=== PATIENT | female | born 1975 | race Caucasian/White ===

== ENCOUNTER 2018-07-31 08:09 | Outpatient (CLI) | payer BC ==
--- NOTE | 2018-07-31 09:08 | ULT ---
STANDARD THYROID ULTRASOUND: HISTORY: Thyroid nodule. COMPARISON: None. FINDINGS: Real-time, lemons-scale, and color evaluation of the thyroid was performed. The isthmus measures 4 mm in AP dimension. The right lobe measures 1.7 x 4.3 x 1.4 cm, and the left lobe measures 1.5 x 4.3 x 1.4 cm. In the right lobe of the thyroid, at the superior pole, there is a 1.2 x 0.6 x 0.9 cm, solid, hypoech oic nodule, with well defined margins, without microcalcifications. This is a TI-RADS 4-Moderately s uspicious. IMPRESSION: Single nodule, right lobe of thyroid, TI-RADS 4-Moderately suspicious. Followup in six months to one year is recommended, per TI-RADS criteria. POS: [facility]
== END 2018-07-31 08:10 | disposition home or self-care (01) ==
LOC: SCSULT 08:09
PROVIDERS: ATTEND Otolaryngology Plastic Surgery within the Head & Neck
DX: E04.1 Nontoxic single thyroid nodule (principal)
CPT/HCPCS: 76536

== ENCOUNTER 2018-09-23 13:53 | Outpatient (CLI) | payer BC ==
--- NOTE | 2018-09-23 14:19 | RAD ---
EXAM: 3 views of the right hand COMPARISON: None HISTORY: Hand pain FINDINGS: 3 views of the right hand shows no evidence of acute fracture or dislocation. No degenerati ve changes are seen. No soft tissue swelling is present. IMPRESSION: Unremarkable exam.
--- NOTE | 2018-09-23 14:20 | RAD ---
EXAM: 3 views of the left hand COMPARISON: None HISTORY: Hand pain FINDINGS: 3 views of the left hand shows no evidence of acute fracture or dislocation. No degenerativ e changes are seen. No soft tissue swelling is present. IMPRESSION: Unremarkable exam.
--- NOTE | 2018-09-23 14:40 | RAD ---
RIGHT HIP: Two views. 09/23/18 HISTORY: Hip pain. No fracture. No osseous abnormality. No significant degenerative change. IMPRESSION: Unremarkable right hip. POS: [facility]
== END 2018-09-23 13:54 | disposition home or self-care (01) ==
LOC: BICRAD 13:53
PROVIDERS: ATTEND Family Medicine
DX: M25.551 Pain in right hip (principal); M79.641 Pain in right hand; M79.642 Pain in left hand

== ENCOUNTER 2018-10-24 20:30 | Outpatient (CLI) | payer BC | END 2018-10-24 20:31 | disposition home or self-care (01) | LOC: SLEEPLAB 20:30 | PROVIDERS: ATTEND Family Medicine | DX: G47.33 Obstructive sleep apnea (adult) (pediatric) (principal); R09.89 Other specified symptoms and signs involving the circulatory and respiratory systems; R06.83 Snoring; R53.83 Other fatigue | CPT/HCPCS: 95811 ==

== ENCOUNTER 2019-01-30 13:32 | Outpatient (CLI) | payer BC ==
--- NOTE | 2019-01-30 14:29 | CT ---
EXAM: CT abdomen and pelvis without IV contrast PROVIDED CLINICAL HISTORY: Abdominal pain COMPARISON: None FINDINGS: Evaluation is limited by patient respiratory motion. The visualized lung bases are free of significant opacity. The solid abdominal organs demonstrate an unremarkable CT appearance, suboptimally evaluated in the a bsence of IV contrast. There is no bowel dilatation, inflammatory fat stranding, free fluid or free air apparent. There is n o evidence for appendicitis. No regional lymph node enlargement apparent. IUD noted centrally within the uterus. Pelvic phlebolith s are seen. The osseous structures demonstrate no concerning lytic or blastic lesions. IMPRESSION: No evidence for urinary tract calculi or hydronephrosis.
== END 2019-01-30 13:33 | disposition home or self-care (01) ==
LOC: SCSCT 13:32
DX: R19.4 Change in bowel habit (principal); R19.8 Other specified symptoms and signs involving the digestive system and abdomen
CPT/HCPCS: 74176

== ENCOUNTER 2019-03-20 16:00 | Emergency (ER) | payer BC ==
[2019-03-20] MEDS ORDERED: Aspirin Chewable 81 MG TAB ONE (16:20)
[2019-03-20] MEDS ORDERED: Nitroglycerin 2% Ointment 1 INCH/1 GM Packet ONE (16:20)
[2019-03-20 16:27] LABS: #Basophils 0.1 thou/uL (0.0-0.2); #Eosinphils 0.2 thou/uL (0.0-0.7); #Lymphocytes 2.5 thou/uL (1.20-3.40); #Monocytes 0.5 thou/uL (0.11-0.59); #Neutrophils 5.8 thou/uL (1.40-6.50); %Basophils 0.7 % (0.0-1.0); %Eosinophils 2.4 % (0.0-10.0); %Lymphocytes 27.1 % (21.0-51.0); %Neutrophils 63.8 % (42.0-75.0); Hemoglobin 13.8 g/dL (12.0-16.0); Mean Corpuscular HGB CONC 34.2 g/dL (32.0-36.0); Mean Corpuscular Hemoglobin 30.2 pg (27.0-31.0); Mean Corpuscular Volume 88.4 fL (78.0-98.0); Mean Platelet Volume 8.6 fL (7.4-10.4); Platelet Count 292 thou/uL (130-400); Red Blood Cell (RBC) Count 4.56 mill/uL (4.20-5.40); White Blood Cell (WBC) Count 9.1 thou/uL (4.8-10.8)
[2019-03-20 16:48] LABS: ALT (SGPT) 29 U/L (8-55); AST (SGOT) 20 U/L (5-34); Albumin 3.9 g/dL (3.5-5.0); Alkaline Phosphatase 109 U/L (40-110); Anion Gap 12 mmol/L (10-20); BUN (Urea Nitrogen) 12 mg/dL (7.0-18.7); Bilirubin, Total 0.5 mg/dL (0.2-1.2); Calc. Creatinine Clearance 0 mL/min (70-130); Calcium 8.8 mg/dL (7.8-10.44); Carbon Dioxide 24 mmol/L (22-29); Chloride 107 mmol/L (98-107); Estimated GFR-MDRD 63; Globulin 3.3 g/dL (2.4-3.5); Glucose 112 mg/dL (70-105); Protein, Total 7.2 g/dL (6.0-8.3); Sodium 139 mmol/L (136-145)
--- NOTE | 2019-03-20 16:49 | RAD ---
PORTABLE CHEST: 03/20/19 HISTORY: Left sided chest pain, shortness of breath. Heart size and mediastinum are within normal limits. The lungs are clear of infiltrates. No significa nt bony findings. IMPRESSION: No active intrathoracic disease. POS: [facility]
[2019-03-20] MEDS ORDERED: Ketorolac Tromethamine 30 MG/ML VIAL ONE (17:53)
[2019-03-20] MEDS ORDERED: Acetaminophen 500 MG TAB ONE (20:00)
[2019-03-20 20:10] LABS: Troponin I Less than 0.010 ng/mL (< 0.028)
== END 2019-03-20 22:09 | disposition home or self-care (01) ==
LOC: ERS 16:00
DX: R07.89 Other chest pain (principal); E78.5 Hyperlipidemia, unspecified; G43.909 Migraine, unspecified, not intractable, without status migrainosus; F41.9 Anxiety disorder, unspecified; Z79.899 Other long term (current) drug therapy
CPT/HCPCS: 36415; 71045; 80053; 83880; 84484; 85025; 85379; 93005; 96374; J1885

== ENCOUNTER 2019-04-17 09:49 | Outpatient (CLI) | payer BC ==
--- NOTE | 2019-04-17 11:45 | MRI ---
MRI thoracic spine noncontrast: DATE: 04/17/2019 HISTORY: 43-year-old female with ICD-10: "M 79.2 neuropathic pain of chest R 29.898 left arm weakness R 20.0 arm numbness left" COMPARISON: None FINDINGS: Vertebral body heights are maintained. Small hemangioma of bone left lateral portion of T9 vertebral body. The bone marrow signal is diffusely moderately hypointense on T1 WI. The differential diagnosis for this includes red marrow conversion and marrow infiltrative processes. No bone marrow e peewee. No high-grade scoliosis.. Thoracic spinal cord normal in size and signal. No syringohydromyelia. In the right anterior perivertebral space, there is a smoothly marginated, well-circumscribed, approx imately 2 x 1 x 2 cm mass broadly abutting the right anterior edge of the T6 vertebral body.. It is very hyperintense on T2 WI (isointense to CSF). It is isointense to muscle on T1 WI (T1 intermediate) . It is uncertain whether this is a cystic lesion with proteinaceous fluid or a solid neoplasm. There is no high-grade central spinal canal stenosis, high-grade neural foraminal stenosis, cord impi ngement, or nerve root impingement, at any level. At T8-9, there is mild disc space narrowing and a small central disc herniation which indents the the jorge a sac but does not contact the spinal cord. IMPRESSION: 1. A 2 cm mass in the prevertebral space at T6 and T6-7. Recommend contrast-enhanced MRI of thoracic spine. 2. Small central disc herniation at T8-9. 3. no high-grade central spinal canal stenosis, high-grade neural foraminal stenosis, cord impingemen t, or nerve root impingement, at any level.
--- NOTE | 2019-04-17 12:44 | MRI ---
MRI cervical spine noncontrast: DATE: 04/17/2019 HISTORY: 43-year-old female with cervical radiculopathy: "M 79.2 neuropathic pain of chest R 29.898 left arm weakness R 20.0 arm numbness left" COMPARISON: No prior cervical spine MRI FINDINGS: Diffusely hypointense bone marrow signal on T1 WI. This could represent red marrow conversion or ck ow infiltrative process. Nonspecific. 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 No bone marrow edema. Loss of lordosis with reversal of curvature. Vertebral body heights are maintained. No major subluxat ion. Cervical spinal cord normal in size and signal. 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 This is exacerbated by the kyphosis and the mild cervical spondylosis , with disc-osteophyte complexes protruding into the anterior aspect of the spinal canal, abutting and mildly indenting the ventral surface of the spinal cord, at C3-4, C4-5, and C5-6. No high-grade f acet DJD at any level. No neural foraminal stenosis at any level. C1-2: Moderate central spinal canal stenosis entirely on developmental basis. C2-3: Moderate central stenosis entirely on developmental basis. Otherwise normal. C3-4: Focal central disc-osteophyte complex indents spinal cord. Moderate-severe central spinal canal stenosis. C4-5: Focal central disc-osteophyte complex indents spinal cord. Moderate-severe central spinal canal stenosis. C5-6: Broad-based disc-osteophyte complex abuts the ventral surface of spinal cord. Moderate central spinal canal stenosis. 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 This is exacerbated by reversal of curvature-kyphosis and the mild cervical spondylosis, with disc-osteophyte complexes protruding into the anterior aspect of the spinal canal, abutting and mildly indenting the ventral sethi rface of the spinal cord, at C3-4, C4-5, and C5-6. 2. No neural foraminal stenosis at any level.
== END 2019-04-17 09:50 | disposition home or self-care (01) ==
LOC: TBSIIMAG 09:49
PROVIDERS: ATTEND Family Medicine
DX: M79.2 Neuralgia and neuritis, unspecified (principal); R29.898 Other symptoms and signs involving the musculoskeletal system; R20.0 Anesthesia of skin; M51.24 Other intervertebral disc displacement, thoracic region
CPT/HCPCS: 72141; 72146

== ENCOUNTER 2019-04-24 15:07 | Outpatient (CLI) | payer BC, OTHER ==
[2019-04-24] MEDS ORDERED: Magnevist 469MG/ML 20 ML VIAL ONE (15:40)
--- NOTE | 2019-04-24 17:20 | MRI ---
MRI of thethoracic spine with and without contrast: 04/24/2019 COMPARISON:Noncontrast study of the thoracic spine 04/17/2019 HISTORY:Evaluate paraspinal lesion noted on prior imaging. TECHNIQUE: Multiplanar multisequence MR imaging of thethoracic spine with and without contrast Findings:The sagittal STIR imaging demonstrates no focal area of osseous marrow edema. No anterolisthesis or retrolisthesis noted within the thoracic spine. There is no abnormal signal intensity identified within the thoracic cord. There is no significant central canal or neural foraminal stenosis noted at any level within the thor acic spine. At T7-8 there is disc space narrowing with disc desiccation and mild disc bulge. There is a superimposed small central disc herniation causing no significant central canal or neural forami nal stenosis. There is a T2 hyperintense lesion anterior to the T5 vertebral body which measures 1.7 x 1.1 cm. This lesion is of homogeneous decreased T1 and increased T2 signal. The postcontrast imaging demonstrates no evidence for enhancement. 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 The postcontrast imaging demonstrates no abnormal enhancement involving the contents of the thecal sa c, the imaged osseous structures, or the intervertebral discs. IMPRESSION:The T2 hyperintense lesion anterior to the T5 vertebral body noted on recent noncontrast e nhanced imaging demonstrates no abnormal enhancement. This lesion follows the signal characteristics of fluid on all provided pulse sequences, evidence of a benign cystic lesion, such as a duplication cyst.
== END 2019-04-24 15:08 | disposition home or self-care (01) ==
LOC: BICMRI 15:07
PROVIDERS: ATTEND Family Medicine
DX: M54.6 Pain in thoracic spine (principal); M89.9 Disorder of bone, unspecified
CPT/HCPCS: 72157; A9579

== ENCOUNTER 2019-11-27 12:17 | Outpatient (CLI) | payer OTHER ==
--- NOTE | 2019-11-27 13:30 | MRI ---
MRI thoracic spine noncontrast: 11/27/2019 HISTORY: 44-year-old female with "G 95.9, spinal cord lesion M 54.6, thoracic spine pain" COMPARISON: 04/24/2019 and 04/17/2019 FINDINGS: No interval change in the smoothly circumscribed 2.5 x 1.9 x 1.1 cm, T2 and STIR homogeneously hyperi ntense, and T1 hypointense, smoothly circumscribed cyst with thin almeida, in the right anterior perivertebral space, abutting posterior mediastinum broadly abutting the right anterior surface of th e T5 vertebral body, extending to the T4-5 disc level and to the upper T6 level. There was no associated enhancement on previous MRI. There is no adjacent bone marrow signal abnormality. There is no bone marrow signal abnormality at an y level. Vertebral body heights are maintained. Thoracic spinal cord is normal in size and signal. Despite the "ICD-10 G 95.9 spinal cord lesion" diagnosis given in the history, there is no cord abnor mality at all. No syrinx. No central spinal canal stenosis at any level. At T7-8, there is a small focal central disc herniation which indents the thecal sac but does not con tact the spinal cord. No high-grade neural foraminal stenosis at any level. No other abnormality of perivertebral spaces. No interval change overall. IMPRESSION: 1.) Benign cyst in the right prevertebral space or posterior mediastinum, centered at T5. 2) focal central disc herniation at T7/8. 3) otherwise negative. 4) no interval change overall. 5) normal spinal cord
== END 2019-11-27 12:18 | disposition home or self-care (01) ==
LOC: TBSIIMAG 12:17
PROVIDERS: ATTEND Neurological Surgery
DX: M54.6 Pain in thoracic spine (principal); G95.9 Disease of spinal cord, unspecified; M51.24 Other intervertebral disc displacement, thoracic region; M85.60 Other cyst of bone, unspecified site
CPT/HCPCS: 72146

== ENCOUNTER 2020-08-11 13:31 | Outpatient (CLI) | payer OTHER | END 2020-08-11 13:32 | disposition home or self-care (01) | LOC: BICRAD 13:31 | PROVIDERS: ATTEND Physician Assistant | DX: M54.6 Pain in thoracic spine (principal); M43.9 Deforming dorsopathy, unspecified | CPT/HCPCS: 72072 ==

== ENCOUNTER 2020-10-20 08:54 | Outpatient (CLI) | payer OTHER | END 2020-10-20 08:55 | disposition home or self-care (01) | LOC: BICULT 08:54 | PROVIDERS: ATTEND Otolaryngology Plastic Surgery within the Head & Neck | DX: E04.1 Nontoxic single thyroid nodule (principal) | CPT/HCPCS: 76536 ==

== ENCOUNTER 2020-11-03 09:22 | Outpatient (CLI) | payer OTHER | END 2020-11-03 09:23 | disposition home or self-care (01) | LOC: BICMAMMO 09:22 | PROVIDERS: ATTEND Family Medicine | DX: Z12.31 Encounter for screening mammogram for malignant neoplasm of breast (principal) | CPT/HCPCS: 77063; 77067 ==

== ENCOUNTER 2021-03-09 12:20 | Outpatient (CLI) | payer OTHER | END 2021-03-09 12:21 | disposition home or self-care (01) | LOC: BICRAD 12:20 | PROVIDERS: ATTEND Internal Medicine Cardiovascular Disease | DX: R06.00 Dyspnea, unspecified (principal) | CPT/HCPCS: 71046 ==

== ENCOUNTER 2021-06-09 14:18 | Outpatient (CLI) | payer OTHER | END 2021-06-09 14:19 | disposition home or self-care (01) | LOC: TBSIIMAG 14:18 | PROVIDERS: ATTEND Neurological Surgery | DX: G95.9 Disease of spinal cord, unspecified (principal); M54.6 Pain in thoracic spine; M51.24 Other intervertebral disc displacement, thoracic region | CPT/HCPCS: 72146 ==

== ENCOUNTER 2021-08-08 12:59 | Outpatient (CLI) | payer OTHER | END 2021-08-08 13:00 | disposition home or self-care (01) | LOC: DTY/OP 12:59 | PROVIDERS: ATTEND Family Medicine | DX: R73.09 Other abnormal glucose (principal) | CPT/HCPCS: 97802 ==

== ENCOUNTER 2022-05-30 14:12 | Emergency (ER) | payer OTHER ==
[2022-05-30 15:38] LABS: #Basophils 0.1 thou/uL (0.0-0.2); #Eosinphils 0.3 thou/uL (0.0-0.7); #Monocytes 0.7 thou/uL (0.11-0.59); #Neutrophils 4.7 thou/uL (1.40-6.50); %Basophils 0.6 % (0.0-1.0); %Lymphocytes 33.9 % (21.0-51.0); %Monocytes 8.3 % (0.0-10.0); %Neutrophils 54.2 % (42.0-75.0); Hemoglobin 14.2 g/dL (12.0-16.0); Mean Corpuscular HGB CONC 34.1 g/dL (32.0-36.0); Mean Corpuscular Hemoglobin 30.9 pg (27.0-31.0); Mean Corpuscular Volume 90.7 fl (78.0-98.0); Mean Platelet Volume 8.9 fL (7.4-10.4); Platelet Count 255 10x3/uL (130-400); RBC Distribution Width 12.8 % (11.5-14.5); Red Blood Cell (RBC) Count 4.58 mill/uL (4.20-5.40); White Blood Cell (WBC) Count 8.8 10x3/uL (4.8-10.8)
[2022-05-30 15:48] LABS: BHCG - Serum Negative (NEGATIVE); Pregs Control Background? CLEAR/WHITE (CLR/WHITE); Pregs Control Bar Appear? YES (CONTROL BAR)
[2022-05-30 16:05] LABS: ALT (SGPT) 31 U/L (8-55); AST (SGOT) 22 U/L (5-34); Albumin 3.9 g/dL (3.5-5.0); Alkaline Phosphatase 107 U/L (40-110); Anion Gap 12 mmol/L (10-20); BUN (Urea Nitrogen) 14 mg/dL (7.0-18.7); Bilirubin, Total 0.3 mg/dL (0.2-1.2); Calc. Creatinine Clearance 0 mL/min (70-130); Carbon Dioxide 22 mmol/L (22-29); Chloride 107 mmol/L (98-107); Estimated GFR 83; Globulin 3.3 g/dL (2.4-3.5); Glucose 125 mg/dL (70-105); Potassium 4.2 mmol/L (3.5-5.1); Protein, Total 7.2 g/dL (6.0-8.3); Sodium 137 mmol/L (136-145)
[2022-05-30] MEDS ORDERED: Prochlorperazine 10 MG/2 ML VIAL IVP SCH (17:45)
[2022-05-30] MEDS ORDERED: Prochlorperazine Edisylate 10 MG in Sodium Chloride 0.9% 50 ML IVPB SCH (17:45)
[2022-05-30] MEDS ORDERED: Ketorolac Tromethamine 30 MG/ML VIAL ONE (17:53)
[2022-05-30] MEDS ORDERED: diphenhydrAMINE 50 MG/ML VIAL ONE (17:53)
== END 2022-05-30 18:47 | disposition home or self-care (01) ==
LOC: ERS 14:12
DX: G43.909 Migraine, unspecified, not intractable, without status migrainosus (principal); I10 Essential (primary) hypertension; K21.9 Gastro-esophageal reflux disease without esophagitis
CPT/HCPCS: 36415; 80053; 80175; 80177; 84703; 85025; 96361; 96365; 96375; J0780; J1200; J1885

== ENCOUNTER 2022-11-16 14:43 | Outpatient (CLI) | payer OTHER | END 2022-11-16 14:44 | disposition home or self-care (01) | LOC: ULT 14:43 | PROVIDERS: ATTEND Otolaryngology Plastic Surgery within the Head & Neck | DX: E04.1 Nontoxic single thyroid nodule (principal) | CPT/HCPCS: 76536 ==

== ENCOUNTER 2024-12-19 09:52 | Outpatient (CLI) | payer OTHER | END 2024-12-19 09:53 | disposition home or self-care (01) | LOC: ULT 09:52 | PROVIDERS: ATTEND Family Medicine | DX: E01.0 Iodine-deficiency related diffuse (endemic) goiter (principal) | CPT/HCPCS: 76536 ==